=== PATIENT | female | born 1995 | race American Indian/Alaskan Native ===

== ENCOUNTER 2025-06-08 09:28 | Observation (INO) | payer BC, SELFPAY ==
[2025-06-08] VITALS (11 sets, daily range): BP systolic 124; BP diastolic 80; PULSE 82–108; RESP 18–98; TEMP 36.8; O2SAT 98–100; BMI 35.1
[2025-06-08 10:02] LABS: ROM Kit Exp Date# 11/15/2027; ROM Kit Lot # 58102387; ROM Swab Mixed By: AYONJ; Swb Mxed in Solvent 1 min? Yes
[2025-06-08 10:16] LABS: Rupture of Fetal Membranes Negative (Negative)
== END 2025-06-08 10:50 | disposition home or self-care (01) ==
PROVIDERS: Admitting Provider Obstetrics & Gynecology; Visit Provider Obstetrics & Gynecology
DX: Z34.83 Encounter for supervision of other normal pregnancy, third trimester (principal); Z3A.39 39 weeks gestation of pregnancy
CPT/HCPCS: 59025; 59899; 84112

== ENCOUNTER 2025-06-12 06:03 | Inpatient (IN) | payer BC, SELFPAY ==
[2025-06-12] VITALS (164 sets, daily range): BP systolic 87–164; BP diastolic 49–94; PULSE 52–131; RESP 16–99; TEMP 36.7–37; O2SAT 86–100; BMI 35.3; BMI 35.2
[2025-06-12] MEDS: RINGERS LACTATED 1000 ML 1,000 ML 100 ML IV ×3 (07:10→10:25)
[2025-06-12] MEDS: Ampicillin Inj 2,000 MG in SODIUM CHLORIDE 0.9% (POP) 100 ML 200 MG IV (07:12)
[2025-06-12 07:21] LABS: Amphetamine/Metham Scrn,Ur OB Negative (Negative); Benzoylecgonine Screen, Ur OB Negative (Negative); Opiate Screen,Urine OB Negative (Negative); THC Screen,Urine OB Negative (Negative)
--- NOTE | 2025-06-12 07:40 | PD.LDHP ---
Documentation for date of: 06/12/25 OB Labor/Induct. HPI History of Present Illness Chief complaint: contractions : 3 Para: 2 Term pregnancies: 2 pregnancies: 0 Living children: 2 History of Abortions: Spontaneous and Elective: 0 History of Vaginal deliveries: 2 History of sections: No History of : No Date of last menstrual period: 09/03/24 OSMEL: 06/10/25 Gestational Age (weeks): 40 Gestational Age (days): 2 Gestational age based on last menstrual period: 40 History of present illness: Patient presents for regular, painful ctx. No LOF. No vaginal bleeding. Normal movement. No fevers/chills. History of Present Dating criteria: LMP confirmed by 1st trimester US Adequate Care: Yes Narrative: Hx of 2 term uncomplicated svds, proven to 7lb Anemia Current BMI 35 THC use Rubella non-immune Labs Maternal Blood Type: A Pos Labs: Positive: Group Beta Strep, Negative: RPR, Hepatitis B, Rubella Titre, HIV, Chlamydia and Gonorrhea and Unknown: Herpes Type 1, Herpes Type 2 and Covid-19 Narrative: 1hr glucola 83 NIPT negative AFP negative Review of Systems Review of Systems Narrative Review of Systems: Review of Systems Systems Reviewed: All systems reviewed, normal except as documented Constitutional Constitutional: Denies body ache(s), Denies chills, Denies fever(s) and Denies headache(s) ENT Ears, Nose, Mouth, and Throat: Denies headache(s) and Denies vertigo Cardiovascular Cardiovascular: Denies chest pain, Denies palpitations, Denies dyspnea and Denies syncope Respiratory Respiratory: Denies cough, Denies dyspnea Gastrointestinal Gastrointestinal: Denies nausea and Denies vomiting Neurologic Neurologic: Denies convulsions, Denies headache(s), Denies other visual disturbances, Denies syncope and Denies vertigo Past Medical History Family History OTHER FAMILY HX: autism, migraines, T2DM Surgical History SURGICAL: Negative Section Social History SOCIAL: THC use. No tobacco or ETOH. Past Medical History Comments PMH COMMENT: Current BMI 35.2 Meds Home Medications and Allergies Home Medications ?Medication ?Instructions ?Recorded ?Confirmed ?Type Vitamin * 1 tab PO QDAY #0 tabs 03/03/15 06/08/25 History ferrous sulfate 325 mg (65 mg 325 mg PO EVERYOTHERDAY 06/08/25 06/08/25 History iron) tablet Allergies Allergy/AdvReac Type Severity Reaction Status Date / Time No Known Allergies AdvReac Unknown Uncoded 06/12/25 06:36 OB Exam Physical Exam Vital signs: Temp Pulse Resp BP Pulse Ox 98.1 F 82 19 123/80 100 06/12/25 06:05 06/12/25 06:31 06/12/25 06:05 06/12/25 06:31 06/12/25 07:37 Narrative: General: well developed, well nourished, no acute distress, conversant Cardiac: normal heart rate Lungs: breathing without distress Abdomen: soft, gravid, non-tender, no rebound or guarding Extremities: no pain with palpation of calves Detailed Labor and Delivery Exam Dilation (cm): 5 Effacement (%): 80 Cervix position: mid station: -2 Consistency: soft Presentation: Vertex Membranes: intact Baseline heart rate: 140 monitor accelerations: 15x15 monitor decelerations: None nursing home variability: Moderate (11-25) Contraction frequency (min): q2-4min OB Results Labs 06/12/25 20:51 OB Assessment & Plan Assessment and Plan (1) Active labor at term: Status: Acute Assessment and plan: Mirtha is a 29yo with SIUP at 40&2wk presenting in active labor. Regular/painful contractions, SCE: 5/80/-2. Vitals wnl, benign exam. Reassuring assessment. PMhx/ significant for: -PNC with Dr. Levy's office Anemia, Rx iron Current BMI 35 THC use Rubella non-immune Plan: -Admit to L&D -Establish IV, routine labs including UDS -CEFM -Clear liquid diet -Renewable Energy Engineer/consent re: -GBS status: positive. Ampicillin per protocol. -Anticipate -Safe to proceed (2) 40 weeks gestation of : Status: Acute
[2025-06-12] MEDS: fentaNYL CIT INJ 50 mCg/ML AMP 2ML 100 MCG IVP (07:42)
[2025-06-12 07:43] LABS: Basophils # (Auto) 0.1 Thou/mm3 (0.0-0.2); Basophils % (Auto) 1 % (0-2.5); Eosinophils # (Auto) 0.1 Thou/mm3 (0.0-0.5); Eosinophils % (Auto) 1 % (0-10); Hematocrit 38.5 % (36.0-46.0); Hemoglobin 13.2 g/dL (12.0-16.0); Immature Granulocytes Auto 0.16 Thou/mm3 (0.00-0.00); Lymphocytes # (Auto) 2.3 Thou/mm3 (1.0-4.8); Lymphocytes % (Auto) 23 % (10-50); Mean Corpuscular HGB Conc 34.3 g/dl (31.0-37.0); Mean Corpuscular Hemoglobin 31.4 pg (25.0-35.0); Mean Corpuscular Volume 91 fL (80-100); Monocytes # (Auto) 0.6 Thou/mm3 (0.0-0.8); Monocytes % (Auto) 6 % (0-12); Neutrophils # (Auto) 6.7 Thou/mm3 (1.8-7.7); Neutrophils % (Auto) 68 % (37-80); Nucleated Red Blood Cell # 0.00 Thou/mm3 (0.00-0.00); Nucleated Red Blood Cell % 0 /100 WBC (0); Platelet Count 257 Thou/mm3 (140-440); RDW Standard Deviation 44.0 fL (36.4-46.3); Red Blood Count 4.21 Miln/mm3 (4.00-5.20); White Blood Count 9.8 Thou/mm3 (3.6-11.0)
[2025-06-12 07:46] LABS: ROM Kit Exp Date# 111527; ROM Kit Lot # 58102387; Rupture of Fetal Membranes Negative (Negative); Swb Mxed in Solvent 1 min? Yes
[2025-06-12 08:19] LABS: Syphilis Nonreactive (Nonreactive)
[2025-06-12] MEDS: Ampicillin Inj 1,000 MG in SODIUM CHLORIDE 0.9% (Popper) 50 ML 50 MG IV (11:29)
--- NOTE | 2025-06-12 11:39 | PD.LDPN ---
Documentation for date of: 06/12/25 OB Labor Progress Note Pelvic Exam Dilation (cm): 8 Effacement (%): 80 station: -2 Amniotic membrane status: Intact Contractions Monitor mode: External Contraction frequency: 3-8 Contraction intensity: Moderate Status status: Category l Assessment and Plan Comments: Intrapartum Note Patient doing well, but epidural is only semi-effective. She is receiving 2nd dose of IV ampicillin for GBS pos. Vitals wnl, afebrile Cat I FHRT Ctx q4-5min SCE: 880/-2, AROM performed with clear fluid noted, well tolerated Plan to continue expectant management Will closely observe CEFM Safe to proceed Jacqueline Faustin MD
[2025-06-12] MEDS: OXYTOCIN in NS 20 units 20 UNIT/1,000 ML BAG 125 UNIT IV (13:12)
[2025-06-12] MEDS: LIDOCAINE HCL 1% 20 ML VIAL INFL (13:12)
[2025-06-12] MEDS: BENZO/LANO/ALOE (Dermoplast) 60 GM CAN 1 SPRAY TOP (13:12)
--- NOTE | 2025-06-12 13:55 | OBDSUM_ITS ---
Data ([place]) Data Hx Section: No : 3 Term: 2 : 0 Livin Abortions: Spontaneous & Theraputic: 0 Delivery Data ([place]) Labor Data Initiation of labor: Spontaneous Induction/Augmentation Agent: Artificial ROM ROM date: 06/12/25 ROM time: 11:36 Amniotic membrane rupture type: Artificial Amniotic fluid description: Clear Delivery Data Onset of labor date: 06/12/25 Onset of labor time: 04:00 Complete dilation date: 06/12/25 Complete dilation time: 12:33 [place] delivery date: 06/12/25 [place] delivery time: 12:40 Placenta delivery date: 06/12/25 Placenta delivery time: 12:47 Stage 1 total time: Labor - Stage 1 Duration 8 hours and 33 minutes Delivered by: Jacqueline Faustin Delivery nurse: Kassandra Hopper RN [place] nurse: SHERLEY Nuno & SHERLEY Monet Cell Tuber Machine at delivery: No Support person(s) at delivery: FOB Delivery Method Delivery method: Normal Vaginal Delivery Presentation: Vertex Anesthesia Type Anesthesia Type: Local and Epidural Placenta Placenta delivery description: Spontaneous Cord blood sent to lab: Yes cord blood collection: Cord Blood Type Episiotomy Episiotomy description: None EBL Estimated blood loss (ml): 150 Additional Procedures Mirtha Eduardo is a 29yo s/p uncomplicated at 40&2wk after presenting in active labor, delivering at 1240 on 06/12/2025. On presentation, SCE was 5/80/-2. She received Ampicillin for GBS positive. AROM was performed. She progressed without pitocin augmentation to C/C/+1 at which point she began pushing. She received an epidural which was only semi-functional. With good maternal pushing efforts, infant's head delivered OA and restituted MONET. Left anterior shoulder delivered easily followed by posterior shoulder and corpus. Infant had spontaneous cry and was vigorous. Apgars 9/9. placed on maternal abdomen where nose/mouth were suctioned and infant dried/stimulated. After approximately 3 minutes, cord was clamped x2 and cut by FOB. Cord blood collected for typing. With fundal massage and cord traction, placenta delivered spontaneously and intact with 3 vessel centrally inserted cord. Bimanual massage performed and IV pitocin given per protocol with fundus then firm at u-2cm and hemostasis noted. Inspection of perineum and vagina revealed superficial left labial laceration and a small, superficial janine-urethral laceration which were repaired in routine fashion with 3-0 vicryl after anesthetizing with 1% lidocaine- total reapproximation and hemostasis achieved. All counts correct x2. Mom and were doing well when I left the room. Jacqueline Faustin MD Complications Complications: none [place] Data ([place]) [place] Data order: 1 's gender: Male Identification band number: [id number] weight (gms): 3750 g Weight (pounds): 8 lbs and 4.3 ozs length: 55.88 cm 1 minute: 9 5 minutes: 9
[2025-06-12 21:26] LABS: Basophils # (Auto) 0.0 Thou/mm3 (0.0-0.2); Basophils % (Auto) 0 % (0-2.5); Eosinophils # (Auto) 0.1 Thou/mm3 (0.0-0.5); Eosinophils % (Auto) 0 % (0-10); Hematocrit 33.0 % (36.0-46.0); Hemoglobin 11.3 g/dL (12.0-16.0); Immature Granulocytes Auto 0.10 Thou/mm3 (0.00-0.00); Lymphocytes # (Auto) 1.5 Thou/mm3 (1.0-4.8); Lymphocytes % (Auto) 13 % (10-50); Mean Corpuscular HGB Conc 34.2 g/dl (31.0-37.0); Mean Corpuscular Hemoglobin 31.1 pg (25.0-35.0); Mean Corpuscular Volume 91 fL (80-100); Monocytes # (Auto) 1.1 Thou/mm3 (0.0-0.8); Monocytes % (Auto) 9 % (0-12); Neutrophils # (Auto) 9.3 Thou/mm3 (1.8-7.7); Neutrophils % (Auto) 77 % (37-80); Nucleated Red Blood Cell # 0.00 Thou/mm3 (0.00-0.00); Nucleated Red Blood Cell % 0 /100 WBC (0); Platelet Count 235 Thou/mm3 (140-440); RDW Standard Deviation 43.9 fL (36.4-46.3); Red Blood Count 3.63 Miln/mm3 (4.00-5.20); White Blood Count 12.0 Thou/mm3 (3.6-11.0)
[2025-06-12] MEDS: DOCUSATE SOD 100 MG CAPSULE PO (21:49)
[2025-06-13 03:47] VITALS: BP 120/70; PULSE 81; RESP 21; TEMP 36.9; O2SAT 100
--- NOTE | 2025-06-13 07:46 | PD.LDDS ---
DS: Providers Provider Date of admission: 06/12/25 06:24 Primary care physician: Physician No Primary/Family Admitting Provider: Jacqueline Faustin MD Attending Provider on Admission: Jacqueline Faustin MD Consults: 06/12/25 13:04 Referral Routine Comment: Attending Provider on DC: Jacqueline Faustin MD Discharging Provider: Jacqueline Faustin MD DS: Diagnosis Discharge Diagnosis (1) care following vaginal delivery: Status: Acute (2) (normal spontaneous vaginal delivery): Status: Acute (3) Active labor at term: Status: Acute (4) 40 weeks gestation of : Status: Acute Problem List Completed Was Problem List Reviewed/Reconciled?: Yes Summary/Hosp Course Brief History: Patient presents for regular, painful ctx. No LOF. No vaginal bleeding. Normal movement. No fevers/chills. Mirtha is a 29yo [id number] s/p uncomplicated at 40+wk after presenting in active labor, delivering at 1240 on 06/12/25. She has had an uncomplicated course, meeting all milestones and feels ready for discharge home. She is ambulating without lightheadedness, tolerating regular diet no n/v, spontaneously voiding without issue. She has no chest pain or shortness of breath. No fevers or chills. Minimal, appropriate discomfort. Vitals normal, benign exam. Hemodynamically stable with no evidence of infection. PP Hgb 11.3 from 13.2. Peripartum Data Delivery Method: Normal Vaginal Delivery Episiotomy Description: None Status at Discharge Functional status at discharge: independent ambulation Overall status at discharge: patient is back to baseline Time Spent with Patient Time attestation: Total time spent providing and/or coordinating discharge services: Exam Vital Signs Temp Pulse Resp BP Pulse Ox O2 Del Method 98.4 F 81 21 H 120/70 100 Room Air 06/13/25 03:47 06/13/25 03:47 06/13/25 03:47 06/13/25 03:47 06/13/25 03:47 06/13/25 03:47 Narrative Exam General: well developed, well nourished, no acute distress, conversant Cardiac: normal heart rate Lungs: breathing without distress Abdomen: soft, post-gravid, non-tender, no rebound or guarding, Fundus firm at u-3cm. Extremities: no pain with palpation of calves, trace edema of BLE Discharge Plan Plan Patient Disposition: HOME (Self Care) Patient condition on transfer: Stable Prescriptions/Referrals Prescriptions/Med Rec: New docusate sodium 100 mg Capsule 100 mg PO BID 10 Days Qty: 20 0RF ibuprofen 800 mg tablet 800 mg PO Q8H PRN (Reason: See Comments) 10 Days Qty: 20 0RF No Action Vitamin * 1 EACH tablet 1 tab PO QDAY Qty: 0 ferrous sulfate 325 mg (65 mg iron) tablet 325 mg PO EVERYOTHERDAY Patient Comments: Take 1 tablet by mouth every other day Referrals: No Primary/Family,Physician [Primary Care Provider] - Patient/Caregiver Discharge Instructions Discharge Activity: activity as tolerated and other Other Discharge Activity Instructions:: vaginal rest and no heavy lifting more than 10 pounds for 6 weeks Other Discharge Diet Instructions: regular diet Education Materials: After a Vaginal Print Language: Luxembourger Activity Restrictions/Additional Instructions: follow up with Dr. Levy's office in 2 to 4 weeks, call to schedule appointment Stand Alone Forms: Eloisa Award Info., Patient Portal Info Letter Discharge Order Discharge Orders: Discharge (Routine); Ordered 06/13/25 Ordered By: Jacqueline Faustin Planned Discharge Date 06/13/25
[2025-06-13 08:00] VITALS: BP 105/66; PULSE 83; RESP 18; TEMP 36.8; O2SAT 100
--- NOTE | 2025-06-13 08:39 | PC.SS ---
SHADOWGRAPH SCALE OPERATOR conducted bedside contact with patient to address nursing referral indicating patient possessed history of THC use. SHADOWGRAPH SCALE OPERATOR introduced role and reason. At bedside was [place] SILVA. Patient gave permission for FOB to be present during discussion. Patient confirmed pas history of THC use. Patient denied future use of THC and stated it has been a long time since she used and stopped using it before she got . Patient denied history of MH, DV, CPS. Patient shared that she delivered naturally and had a baby boy. will be breast fed and has all baby supplies needed. Patient is not connected to WIC, food stamps, or rodriguez aid. FOB is involved and they have two other children, an 8 year old female and a year old male. Patient stated that her support system consist of her , her mom, and her aunt. Patient received care at the [facility]. Infant back hoe machine operator will be at the [facility]. Once medically clear patient?s will provide transportation. SHADOWGRAPH SCALE OPERATOR provided patient with community resources, WIC, and resources for the [facility]. SS has no concerns at this time, SHADOWGRAPH SCALE OPERATOR notified [facility] bedside nurse that she met with patient.
[2025-06-13] MEDS: DOCUSATE SOD 100 MG CAPSULE PO (08:51)
[2025-06-13 12:06] VITALS: BP 116/64; PULSE 78; RESP 18; TEMP 36.7; O2SAT 100
== END 2025-06-13 14:50 | disposition home or self-care (01) | DRG 807 ==
LOC: S4SX 13:59 → S4NX 15:56
PROVIDERS: Admitting Provider Obstetrics & Gynecology; Visit Provider Obstetrics & Gynecology
DX: O48.0 Post-term pregnancy (principal); Z37.0 Single live birth; O99.824 Streptococcus B carrier state complicating childbirth; Z3A.40 40 weeks gestation of pregnancy; O99.02 Anemia complicating childbirth; D64.9 Anemia, unspecified; O70.0 First degree perineal laceration during delivery
CPT/HCPCS: 36415; 59409; 80307; 84112; 85025; 86780; 86850; 86870; 86900; 86901; 94762; J0290; J2590; J3010; J3490; J7050; J7120; A9270